=== PATIENT | female | born 1975 | race Caucasian/White ===

== ENCOUNTER 2023-06-04 10:43 | Outpatient (CLI) | payer MEDICAID ==
[2023-06-04 11:17] LABS: ALBUMIN 4.3 g/dL (3.2-5.5); ALBUMIN/GLOBULIN RATIO 1.5 (1.0-2.2); BILIRUBIN,TOTAL 0.3 mg/dL (0.2-1.0); CALCIUM 9.8 mg/dL (8.5-10.3); CREATININE 0.6 mg/dL (0.6-1.3); TOTAL PROTEIN 7.2 g/dL (6.4-8.9)
[2023-06-04 11:33] LABS: THYROID STIMULATING HORMONE 1.39 uIU/mL (0.34-5.60)
[2023-06-04 11:39] LABS: PROLACTIN 0.71 ng/mL
[2023-06-04 12:20] LABS: ESTIMATED AVERAGE GLUCOSE 103 mg/dL (70-100); HEMOGLOBIN A1c% 5.2 % (4.27-6.07)
== END 2023-06-04 10:44 | disposition home or self-care (01) ==
LOC: LAB 10:43
PROVIDERS: ATTEND Internal Medicine
DX: D35.2 Benign neoplasm of pituitary gland (principal); E22.9 Hyperfunction of pituitary gland, unspecified; E03.9 Hypothyroidism, unspecified; E66.9 Obesity, unspecified; R73.03 Prediabetes; R63.8 Other symptoms and signs concerning food and fluid intake; K85.30 Drug induced acute pancreatitis without necrosis or infection
CPT/HCPCS: 36415; 80053; 82150; 83036; 83690; 84146; 84439; 84443

== ENCOUNTER 2023-06-11 13:37 | Outpatient (CLI) | payer MEDICAID ==
--- NOTE | 2023-06-11 15:44 | MRI Report ---
PROCEDURE: Cervical Spine WO INDICATIONS: NECK PAIN TECHNIQUE: Noncontrast sagittal T1 spin echo and T2 fast spin echo, sagittal STIR, foraminal oblique sagittal T2 fast spin echo, and axial gradient echo or T2 fast spin echo through the cervical spine. COMPARISON: None. FINDINGS: Image quality: Excellent. Alignment and Curvature: Straightening of the normal cervical lordosis.. Bone Marrow: Marrow demonstrates normal overall signal. Spinal Cord: Visualized spinal cord has normal size and signal. No cerebellar tonsillar herniation. Paraspinous Soft Tissues: No paravertebral masses. Prevertebral soft tissues are normal in thicknes s. C2-C3: Normal in appearance. C3-C4: Disc desiccation and mild posterior disc osteophyte complex abutting the ventral cord. Mild central canal stenosis. No neuroforaminal stenosis. C4-C5: Disc desiccation and mild posterior disc ossify complex abutting the ventral cord. Mild centr al canal stenosis. No significant neuroforaminal stenosis. C5-C6: Disc desiccation and height loss. Posterior disc osteophyte complex abutting the ventral cord . Mild central canal stenosis. Facet and uncovertebral arthropathy. Mild bilateral neuroforaminal ilya nosis. C6-C7: Disc desiccation and minimal posterior disc osteophyte complex. No central canal or neurofora mike stenosis. C7-T1: No central canal or neuroforaminal stenosis. IMPRESSION: Mild degenerative changes of the cervical spine as described above. Reviewed by: Rashawn See MD on 06/11/2023 3:43 PM PDT Approved by: Rashawn See MD on 06/11/2023 3:43 PM PDT Station ID: [id number]
== END 2023-06-11 13:38 | disposition home or self-care (01) ==
LOC: DI 13:37
PROVIDERS: ATTEND Anesthesiology Pain Medicine
DX: M47.812 Spondylosis without myelopathy or radiculopathy, cervical region (principal); M50.31 Other cervical disc degeneration, high cervical region; M48.02 Spinal stenosis, cervical region

== ENCOUNTER 2023-07-04 15:02 | Emergency (ER) | payer MEDICAID ==
[2023-07-04] MEDS: PROCHLORPERAZINE 10 MG/2 ML VIAL IVP STA (16:20)
[2023-07-04] MEDS: SODIUM CHLORIDE 0.9% 1,000 ML IV ONE (16:20)
[2023-07-04] MEDS: diphenhydrAMINE INJ 50 MG/ML VIAL IVP STA (16:20)
[2023-07-04] MEDS: DEXAMETHASONE 10 MG/ML VIAL IVP STA (16:20)
[2023-07-04 16:31] LABS: HCG UR QUAL NEGATIVE
--- NOTE | 2023-07-04 17:02 | CT Report ---
PROCEDURE: Head WO INDICATIONS: new migraine pattern TECHNIQUE: Noncontrast 4.5 mm thick angled axial sections acquired from the foramen magnum to the vertex. For r adiation dose reduction, the following was used: automated exposure control, adjustment of mA and/or kV according to patient size. COMPARISON: None. FINDINGS: Image quality: Excellent. CSF spaces: Basal cisterns are patent. No extra-axial fluid collections. Ventricles are normal in size and shape. Brain: No midline shift. No intracranial masses or hemorrhage. Callaway-white matter interface is norm al. Skull and face: Calvarium and visualized facial bones are intact, without suspicious lesions. Sinuses: Visualized sinuses and mastoids are clear. IMPRESSION: No acute intracranial pathology. Reviewed by: Rashawn Quiroz MD on 07/04/2023 5:01 PM PDT Approved by: Rashawn Quiroz MD on 07/04/2023 5:01 PM PDT Station ID: [id number]
[2023-07-04 17:03] LABS: BASOPHILS % (AUTO) 0.5 %; EOSINOPHILS # (AUTO) 0.2 10^3/uL (0.0-0.7); EOSINOPHILS % (AUTO) 2.7 %; HCT - HEMATOCRIT 42.3 % (37.0-47.0); HGB - HEMOGLOBIN 13.3 g/dL (12.0-16.0); LYMPHOCYTES # (AUTO) 2.1 10^3/uL (1.5-3.5); LYMPHOCYTES % (AUTO) 34.2 %; MEAN CORPUSCULAR HEMOGLOBIN 28.5 pg (27.0-31.0); MEAN CORPUSCULAR HGB CONC 31.4 g/dL (32.0-36.0); MEAN CORPUSCULAR VOLUME 90.8 fL (81.0-99.0); MEAN PLATELET VOLUME 8.7 fL (7.9-10.8); MONOCYTES # (AUTO) 0.5 10^3/uL (0.0-1.0); MONOCYTES % (AUTO) 7.6 %; NEUTROPHILS # (AUTO) 3.3 10^3/uL (1.5-6.6); NEUTROPHILS % (AUTO) 54.7 %; PLT - PLATELET COUNT 294 10^3/uL (130-450); RED BLOOD COUNT 4.66 10^6/uL (4.20-5.40); RED CELL DISTRIBUTION WIDTH 13.1 % (12.0-15.0)
[2023-07-04 17:19] LABS: ALBUMIN 4.5 g/dL (3.2-5.5); ALBUMIN/GLOBULIN RATIO 1.7 (1.0-2.2); ALKALINE PHOSPHATASE 84 IU/L (42-121); ALT ALANINE AMINOTRANSFERASE 14 IU/L (10-60); AST ASPARTATE AMINOTRANSFERASE 15 IU/L (10-42); BILIRUBIN,TOTAL 0.3 mg/dL (0.2-1.0); BUN - BLOOD UREA NITROGEN 18 mg/dL (6-20); CALCIUM 9.2 mg/dL (8.5-10.3); CARBON DIOXIDE - CO2 26 mmol/L (21-32); CHLORIDE 106 mmol/L (101-111); CREATININE 0.8 mg/dL (0.6-1.3); GFR - MDRD 78 (>89); GLUCOSE 92 mg/dL (74-104); IONIZED CALCIUM IF INDICATED NO; POTASSIUM 3.8 mmol/L (3.5-4.5); SODIUM 138 mmol/L (135-145); TOTAL PROTEIN 7.1 g/dL (6.4-8.9)
[2023-07-04 17:39] VITALS: BP 98/63; O2SAT 98
--- NOTE | 2023-07-09 11:15 | ED Physician Documentation ---
PD HPI HEADACHE - Stated complaint Stated Complaint: H/A - Chief complaint Chief Complaint: Neuro - Additional information Additional information: 47-year-old female presents emergency department for migraine. Patient says that she has chronic migraines she is post to have a surgical procedure on her neck to see if this can help she has tried all of her migraine medications which have been unsuccessful. She says this does feel very similar to previous migraines but she feels more emotionally labile and at times confused.No fevers or chills or body aches. PD PAST MEDICAL HISTORY - Past Medical History Neuro: Migraines Other Past Medical History: cervical vertebrae issues - Past Surgical History /MECHANICAL DESIGN TECHNICIAN: Hysterectomy - Present Medications Home Medications: Ambulatory Orders Medication Instructions Recorded Confirmed Atogepant [Qulipta] 60 mg PO DAILY 07/04/23 07/04/23 Lasmiditan Succinate [Reyvow] 100 - 200 mg PO PRN PRN 07/04/23 07/04/23 - Allergies Allergies/Adverse Reactions: Allergies Allergy/AdvReac Type Severity Reaction Status Date / Time No Known Drug Allergies Allergy Verified 07/04/23 15:11 - Social History Does the pt smoke?: No Smoking Status: Never smoker PD ED PE NORMAL - Vitals Vital signs reviewed: Yes - General General: Alert and oriented X 3, No acute distress, Well developed/nourished - HEENT HEENT: Atraumatic, PERRL, EOMI, Moist mucous membranes - Neck Neck: Supple, no meningeal sign - Cardiac Cardiac: RRR, No murmur, No gallop, Strong equal pulses - Respiratory Respiratory: No respiratory distress, Clear bilaterally - Derm Derm: Normal color, Warm and dry, No rash - Neuro Neuro: Alert and oriented X 3, No motor deficit, No sensory deficit, Normal speech Eye Opening: Spontaneous Motor: Obeys Commands Verbal: Oriented GCS Score: 15 - Psych Psych: Normal mood Results - Vitals Vitals: Oxygen O2 Source Room air - Labs Labs: Laboratory Tests 07/04/23 07/04/23 07/04/23 15:55 16:58 16:58 WBC 6.0 RBC 4.66 Hgb 13.3 Hct 42.3 MCV 90.8 MCH 28.5 MCHC 31.4 L RDW 13.1 Plt Count 294 MPV 8.7 Neut # (Auto) 3.3 Lymph # (Auto) 2.1 Edmonson # (Auto) 0.5 Eos # (Auto) 0.2 Baso # (Auto) 0.0 Absolute Nucleated RBC 0.00 Nucleated RBC % 0.0 Sodium 138 Potassium 3.8 Chloride 106 Carbon Dioxide 26 Anion Gap 6.0 BUN 18 Creatinine 0.8 Estimated GFR (MDRD) 78 L Glucose 92 Calcium 9.2 Ionized Calcium NO Total Bilirubin 0.3 AST 15 ALT 14 Alkaline Phosphatase 84 Total Protein 7.1 Albumin 4.5 Globulin 2.6 Albumin/Globulin Ratio 1.7 Urine HCG, Qual NEGATIVE PD Medical Decision Making - ED course ED course: This patient presents with a headache most consistent with benign headache from either tension type headache vs migraine. No headache red flags. Neurologic exam without evidence of meningismus, AMS, focal neurologic findings so doubt meningitis, encephalitis, stroke. Presentation not consistent with acute intracranial bleed to include SAH (lack of risk factors, headache history). No history of trauma so doubt ICH. Given history and physical temporal arteritis unlikely, as is acute angle closure glaucoma. Doubt carotid artery dissection given no focal neuro deficits, no neck trauma or recent neck strain. Patient with no signs of increased intracranial pressure or weight loss and history and physical suggest more benign headache so less likely mass effect in brain from tumor or abscess or idiopathic intracranial hypertension. Pain was controlled with headache cocktail and patient discharged home with PCP follow up. Because patient endorsed in new confusion and increased fatigue and emotional liability we went ahead and did a head CT which was reassuring and didnt show any acute intracranial abnormalities. Pt told to follow up with PCP as needed. Departure - Departure Disposition: 01 Home, Self Care Clinical Impression: Migraine Qualifiers: Migraine type: unspecified Status migrainosus presence: without status migrainosus Intractability: not intractable Qualified Code(s): G43.909 - Migraine, unspecified, not intractable, without status migrainosus Instructions: ED Headache Migraine Comments: Thank you for trusting us with your care. We have completed labs as well as a head CT and all have come back benign. We have given you medications here in the emergency department to help with your migraine which seems to help with the migraine symptoms that you are experiencing. Please follow-up with your primary care provider or neurologist to let them know about today's ER visit for further evaluation as needed. Forms: PCP List Discharge Date/Time: 07/04/23 17:34
== END 2023-07-04 17:34 | disposition home or self-care (01) ==
LOC: ED 15:02
DX: G43.909 Migraine, unspecified, not intractable, without status migrainosus (principal)
CPT/HCPCS: 36415; 70450; 80053; 81025; 85025; 96374; 99283; 99284; J1200

== ENCOUNTER 2023-11-30 22:19 | Outpatient (CLI) | payer MEDICAID | END 2023-11-30 22:20 | disposition left against medical advice (07) | LOC: EMS 22:19 | DX: G43.909 Migraine, unspecified, not intractable, without status migrainosus (principal); I16.1 Hypertensive emergency ==